=== PATIENT | male | born 1950 | race Caucasian/White ===

== ENCOUNTER 2018-06-28 12:31 | Emergency (ER) | payer OTHER, SELFPAY ==
[2018-06-28 12:52] VITALS: BP 145/83; PULSE 88; RESP 18; TEMP 37.2; O2SAT 94
--- NOTE | 2018-06-28 14:04 | ED.GENADUL_ITS ---
Discharge Plan Disposition Patient Disposition: HOME Condition: Good Discharge Details Chief Complaint: RespSymp Clinical Impression: CAP (community acquired pneumonia) Reason For Visit: coughing x 9 days Primary Care Provider: Bibi,Local ED Provider: Wild Zepeda [facility] and New Rx's Prescriptions: New albuterol sulfate 90 mcg/actuation HFA aerosol inhaler 2 puff IH Q4H PRN (Reason: shortness of breath or wheezing) Qty: 8.5 RF: 0 doxycycline hyclate 100 mg capsule 100 mg PO BID Qty: 14 RF: 0 Continued lovastatin 40 mg Tablet 40 mg PO HS RF: 0 aspirin [Aspir-81] 81 mg Tablet,Delayed Release (Dr/Ec) 81 mg PO DAILY RF: 0 lisinopril 5 mg Tablet 7.5 mg PO RF: 0 coenzyme Q10 [CoQ-10] 100 mg Capsule 1 DAILY RF: 0 Fish Oil 300-500 mg Capsule RF: 0 multivitamin with minerals [Multiple Vitamin-Minerals] Tablet RF: 0 Discharge Instructions Instructions: Community Acquired Pneumonia (ED) Additional Instructions: Continue to rest and stay hydrated. Use the inhaler with spacer every 4-6 hours for cough and wheezing. Take antibiotic as directed. Ibuprofen or acetaminophen as needed for fever or discomfort. Follow-up with your doctor next week if not better, otherwise in 2 weeks once antibiotics completed for recheck. Return to emergency department for progressive shortness of breath, chest pain, mental status changes, vomiting, other concerns. Referrals: Primary Care Provider [Outside] Discharge Data Discharge Date/Time-TO BE ENTERED AT DEPARTURE: 06/28/18 16:30 Medical Decision Making Patient presenting with URI type symptoms for over a week. He has diffuse wheezing throughout. Initially afebrile here. Pulse oximetry is okay. I am going to give him a DuoNeb treatment. Will get a chest x-ray and flu swab. He does not look toxic or ill. Patient does feel better after the DuoNeb. Wheezing is significantly diminished though still slightly present. Flu swab is negative. Chest x-ray is being read by radiology as probable right lower lobe infiltrate. Patient reports that he did feel better after the DuoNeb treatment and felt more open. He has not had any recent antibiotic use. He lives at home in the community and has had no recent hospitalizations. This is community-acquired pneumonia. He looks well and should be able to be managed outpatient. He will be started on doxycycline and is given his first dose here. He did spike a fever here and was given Tylenol. He is given prescriptions for doxycycline as well as albuterol inhaler with spacer. Follow-up with his primary care at the end of the week if not feeling better. Return to the emergency department if any worsening symptomatology. HPI General Mode of arrival: ambulatory . Date/Time Provider Initiated Documentation: 06/28/18 14:03 . Limitations to Documentation: no limitations . Information obtained by: patient . HPI Narrative: Patient presents with over a week's worth of cough, congestion, not feeling well. At night he has significant difficulty sleeping because of cough. He denies having any chest pain or shortness of breath. He denies any significant headache or neurologic changes. He did have the flu shot this year. He has not smoked in years. For the most part he reports being healthy except for some high blood pressure and high cholesterol. Related Data Home Medications Medication Instructions Recorded Confirmed Fish Oil 06/28/18 albuterol sulfate 2 puff IH Q4H PRN #8.5 gm 06/28/18 aspirin [Aspir-81] 81 mg PO DAILY 06/28/18 06/28/18 coenzyme Q10 [CoQ-10] 1 DAILY 06/28/18 doxycycline hyclate 100 mg PO BID #14 cap 06/28/18 lisinopril 7.5 mg PO 06/28/18 lovastatin 40 mg PO HS 06/28/18 06/28/18 multivitamin with minerals 06/28/18 [Multiple Vitamin-Minerals] Previous Rx's Medication Instructions Recorded albuterol sulfate 2 puff IH Q4H PRN #8.5 gm 06/28/18 doxycycline hyclate 100 mg PO BID #14 cap 06/28/18 Allergies Allergy/AdvReac Type Severity Reaction Status Date / Time bee venom protein (honey bee) Allergy Unverified 06/28/18 12:57 clarithromycin [From Biaxin] Allergy Unverified 06/28/18 12:57 General Stated Complaint: RespSymp JOHN: 4 Review of Systems Constitutional Denies chills, Reports fever(s) (subjective), Denies headache(s), Denies lethargy and Denies weakness Eyes Denies eye discharge and Denies eye pain ENT Denies otalgia, Denies facial pain, Denies headache(s), Reports nasal congestion, Denies neck pain, Denies sinus pain and Denies sore throat Cardiovascular Denies chest pain, Denies diaphoresis, Denies syncope and Denies dyspnea Respiratory Reports cough and Denies dyspnea Gastrointestinal Denies abdominal pain, Denies nausea and Denies vomiting Musculoskeletal Denies back pain, Denies neck pain and Denies tingling Integumentary/Breasts Denies rash Neurologic Denies confusion, Denies syncope, Denies headache(s), Denies focal weakness, Denies tingling, Denies paresthesias and Denies weakness Psychiatric Denies confusion PFSH Social History Smoking/Tobacco Use Status: Former Tobacco Use Alcohol Intake: current Alcohol Intake frequency: a few times a week Substance use type: does not use Do you feel safe at home: Yes Do you feel safe in your relationship?: Yes Exam Const General: cooperative, comfortable and no acute distress Orientation: alert and oriented x3 HENMT Head: normocephalic and atraumatic Ears: TM's normal bilaterally Mouth: oropharynx normal and moist mucous membranes Throat: posterior oropharynx normal Neck Neck: trachea midline and supple Resp Effort & Inspection: normal respiratory effort Auscultation: lung sounds not diminished, rhonchi (few) and wheezes expiratory wheezes Cardio Rate: regular rate Rhythm: regular rhythm Heart Sounds: S1 normal and S2 normal GI Palpation: soft, not firm and nontender Skin Rashes: no rashes Neuro General: alert, oriented x3, no focal motor deficits and CN's II-XI intact bilaterally Cognition: normal cognition Speech: speech normal Gait: normal gait Course Vital Signs Temperature 99.0 F 06/28/18 12:52 Pulse 88 06/28/18 12:52 Respiratory Rate 18 06/28/18 12:52 Blood Pressure 145/83 H 06/28/18 12:52 Pulse Oximetry 94 L 06/28/18 12:52 Temperature 99.0 F 06/28/18 12:52 Temperature Source Temporal Artery Scan 06/28/18 12:52 Pulse 88 06/28/18 12:52 Respiratory Rate 18 06/28/18 12:52 Respiratory Effort 06/28/18 13:03 Blood Pressure 145/83 H 06/28/18 12:52 Pulse Oximetry 94 L 06/28/18 12:52 Oxygen Delivery Method Room Air 06/28/18 12:52 Oxygen Flow Rate 0 06/28/18 12:52
--- NOTE | 2018-06-28 14:04 | DI.RAD_ITS ---
SYMPTOMS/DIAGNOSIS: COUGH CHEST: Frontal and lateral views. No priors. The heart size and pulmonary vasculature are within normal limits. There is an infiltrate seen in the right lower lobe and right perihilar region suspicious for pneumonia. The left lung appears clear. No effusions or pneumothoraces are identified. Degenerative changes are seen in the spine. Post surgical changes are seen in the neck and the mediastinum. There is mild elevation of the right hemidiaphragm. IMPRESSION: Right lower lobe infiltrate suspicious for pneumonia. The findings were discussed with Dr. Zepeda of the emergency department on the date of the examination.
[2018-06-28] MEDS: Albuterol/Ipratropium 3 ML UPD VIAL UPD (14:15)
[2018-06-28] MEDS: Doxycycline Hyclate 100 MG CAP PO (16:15)
[2018-06-28 16:18] VITALS: BP 135/81; PULSE 85; TEMP 38.6; O2SAT 97
[2018-06-28 16:23] VITALS: TEMP 38.6
[2018-06-28] MEDS: Acetaminophen 325 MG TAB 650 MG PO (16:23)
[2018-06-28 16:26] VITALS: TEMP 38.6
== END 2018-06-28 16:30 | disposition home or self-care (01) ==
PROVIDERS: Emergency Provider Emergency Medicine
DX: J18.9 Pneumonia, unspecified organism (principal); Z87.891 Personal history of nicotine dependence
CPT/HCPCS: 87449; 94640; 99283; 71046; J7620

== ENCOUNTER 2018-12-19 16:42 | Emergency (ER) | payer OTHER, SELFPAY ==
[2018-12-19] VITALS (29 sets, daily range): BP systolic 64–114; BP diastolic 32–73; PULSE 53–90; RESP 9–30; TEMP 36.6–36.9; O2SAT 86–97
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
--- NOTE | 2018-12-19 16:49 | DI.RAD_ITS ---
SYMPTOM/DIAGNOSIS: OVER THE PATIENT'S INCISION, 3 AREAS LE SUPINE AP CHEST: 12/19 There are multiple right rib fractures probably ribs 5 through 9, and there are fractures of left rib 5,6 and 8 with possibly additional left rib fractures seen. There is a left apical pneumothorax. Increased radiodensity over the left hemithorax is likely to represent a pleural effusion. Pulmonary contusion may be present as well. There is a small quantity of gas in the soft tissues lateral to the left ribs. CONCLUSION: Chest injury with multiple bilateral rib fractures, left apical pneumothorax, left hemothorax and possible left pulmonary contusion. Additional evaluation with chest CT recommended.
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
[2018-12-19] MEDS: Lactated Ringers 1,000 ML 1000 ML IV ×2 (16:59→17:57)
[2018-12-19] MEDS: MORPHine 10 MG/ML VIAL 8 MG IVP (17:00)
[2018-12-19] MEDS: cefTRIAXone 1 GM/50 ML BAG IVPB (17:00)
[2018-12-19 17:10] LABS: Abs Immature Grans 0.14 k/cumm (0.0-0.09); Absolute Basophil Count 0.07 k/cumm (0.0-0.2); Absolute Eosinophil Count 0.27 k/cumm (0.0-0.7); Absolute Lymphocyte Count 3.62 k/cumm (1.2-3.4); Absolute Monocyte Count 1.11 k/cumm (0.11-0.7); Absolute Neutrophil Count 17.01 k/cumm (1.2-6.7); Basophils % 0.3; Eosinophils % 1.2; HCT 46.9 % (40.0-50.0); HGB 15.8 g/dL (13.5-17.5); Immature Grans % 0.6; Lymphocytes % 16.3; Mean Corp. HGB Concentration 33.7 g/dL (32.0-36.0); Mean Corpuscular Hemoglobin 31.2 pg (27.0-33.0); Mean Corpuscular Volume 92.5 fL (80-95); Mean Platelet Volume 8.7 fL (8.0-11.0); Neutrophils % 76.6; Platelet Count 314 x1000/uL (130-400); RBC 5.07 m/cumm (4.50-6.00); RBC Distribution Width 12.3 % (11.8-14.1)
[2018-12-19 17:18] LABS: ALT 40 U/L (16-63); AST 40 U/L (15-37); Alkaline Phosphatase 109 U/L (46-116); Anion Gap 8.8 mmol/L (3-11); BUN 20 mg/dL (7-18); Bilirubin, Total 0.8 mg/dL (0.2-1.0); CO2 29.2 mmol/L (21.0-32.0); CREATININE 1.51 mg/dL (0.70-1.30); Calcium 8.9 mg/dL (8.5-10.1); Chloride 102 mmol/L (98-107); Estimated GFR 46.32 (mL/min/1.73m2); Glucose 149 mg/dL (70-100); Magnesium 1.7 mg/dL (1.8-2.4); Potassium 3.9 mmol/L (3.5-5.1); Sodium 140 mmol/L (136-145)
[2018-12-19] MEDS: MORPHine 10 MG/ML VIAL (17:57)
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
--- NOTE | 2018-12-19 18:37 | NUR.NOTE ---
1835 o negative RBC began [facility] [facility]
== END 2018-12-19 19:05 | disposition short-term general hospital (02) ==
PROVIDERS: Emergency Provider Emergency Medicine
DX: S22.42XA Multiple fractures of ribs, left side, initial encounter for closed fracture (principal); S42.362A Displaced segmental fracture of shaft of humerus, left arm, initial encounter for closed fracture; S52.92XB Unspecified fracture of left forearm, initial encounter for open fracture type I or II; R20.0 Anesthesia of skin; S27.329A Contusion of lung, unspecified, initial encounter; I95.9 Hypotension, unspecified; W30.1XXA Contact with power take-off devices (PTO), initial encounter; Y92.73 Farm field as the place of occurrence of the external cause
CPT/HCPCS: 36415; 36430; 80053; 86850; 86900; 86901; 86920; 90471; 93005; 96361; 96365; 96366; 96375; 96376; 99291; 71045; 73060; 73080; 73090; 73130; 83735; 85025; 93010; J0696; J2270; P9016

== ENCOUNTER 2023-05-24 14:12 | Emergency (ER) | payer MEDICARE, SELFPAY ==
[2023-05-24 14:16] VITALS: BP 167/108; PULSE 77; RESP 20; TEMP 36.7; O2SAT 96
--- NOTE | 2023-05-24 14:20 | W.ED.GENAD ---
HPI General Date/Time Provider Initiated Documentation: 05/24/23 14:19. HPI Narrative: MDM Primary survey intact. Reassuring shock index. On secondary survey patient has an approximately 2 and half centimeters laceration at the base of his left thumb primarily ulnar aspect that will require primary closure following copious irrigation. Tetanus updated within the past 5 years so no indication for repeat tetanus immunization. Intact motor function so I am not suspicious for any underlying ligamentous damage. Hand warm and well-perfused so I am not concerned for any vascular injury. Please see separate procedure note concerning primary closure accomplished in the ED which patient tolerated well. Patient and I discussed return indications including any foul-smelling drainage any fevers or any streaking signs of infection. He understood his return indications and was discharged with empiric trial of expectant outpatient management. Chronic conditions affecting the care of the patient: Reactive airway disease History obtained from an outside historian: N/A External record review: N/A Medications: Acetaminophen ibuprofen local lidocaine Social determinants of health affecting disposition: N/A Management discussed with: N/A Treatment/interventions considered: N/A Response to therapies provided: N/A HPI This is a right hand dominant 72-year-old male with history of reactive airway disease arrived to the emergency department via private vehicle in the setting of a laceration he sustained approximately 35 minutes ago to his left thumb at the base after opening a can of beans. He reports that his tetanus was updated in 2019 he broke his left arm in an agricultural accident. He reports that he was in his usual state of health earlier today and denies any preceding fevers chills chest pain shortness of breath. 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 He currently splits his time between [facility] and [facility]. Exam General: Well-appearing in no acute distress speaking in complete sentences. Head: Normocephalic, atraumatic. Eye: Extraocular eye movements intact. No conjunctival injection. No scleral icterus. Ear, nose, mouth, throat: Grossly normal inspection. Normal voice, handling secretions normally. Neck: Trachea midline. Cardiovascular: Well-perfused distal extremities. Respiratory: Nonlabored respiration. Gastrointestinal: Nondistended abdomen. Musculoskeletal: On the ulnar aspect at the base of the left thumb there is a linear approximately 2.5 cm laceration with minor oozing. Thumb is warm well-perfused with less than 2-second capillary refill. 2 seconds left radial pulse. Patient has full range of motion in his left thumb and is able to flex, extend and radially and ulnarly deviate. Skin: Normal for age and race, grossly normal temperature and turgor. No acute rash. Neurologic: Alert and appropriate, no apparent acute deficits. Psychiatric: Mood and manner are appropriate. Grooming and personal hygiene are appropriate. Related Data Home Medications Medication Instructions Recorded Confirmed albuterol sulfate 90 mcg/actuation 2 puff inhalation Q4H PRN 06/28/18 12/19/18 aerosol inhaler shortness of breath or wheezing #8.5 grams aspirin 81 mg tablet,delayed 81 mg PO DAILY 06/28/18 12/19/18 release (Aspir-) coenzyme Q10 100 mg capsule 1 mg DAILY 06/28/18 12/19/18 (CoQ-10) lisinopril 5 mg tablet 7.5 mg PO DAILY AM 06/28/18 12/19/18 multivitamin with minerals 1 tab PO DAILY 06/28/18 12/19/18 (Multiple Vitamin-Minerals tablet) omega-3 fatty acids-fish oil 300 1 cap PO DAILY 06/28/18 12/19/18 mg-500 mg capsule (Fish Oil) atorvastatin 20 mg tablet 20 mg PO DAILY 12/19/18 cholecalciferol (vitamin D3) 25 1,000 unit PO DAILY 12/19/18 12/19/18 mcg (1,000 unit) chewable tablet (Vitamin D3) esomeprazole magnesium 40 mg 40 mg PO DAILY 12/19/18 12/19/18 capsule,delayed release (Nexium) fluticasone propionate 50 2 spray intranasal 12/19/18 mcg/actuation nasal spray,suspension (Flonase Allergy Relief) loratadine 10 mg tablet 10 mg PO DAILY 12/19/18 12/19/18 psyllium 2 - 4 pwd PO DAILY 12/19/18 12/19/18 tadalafil 10 mg tablet 10 mg PO BID PRN 12/19/18 12/19/18 Previous Rx's Medication Instructions Recorded albuterol sulfate 90 mcg/actuation 2 puff inhalation Q4H PRN 06/28/18 aerosol inhaler shortness of breath or wheezing #8.5 grams Allergies Allergy/AdvReac Type Severity Reaction Status Date / Time bee venom protein (honey bee) Allergy Unverified 12/19/18 19:15 clarithromycin [From Biaxin] Allergy Unverified 12/19/18 19:15 General Stated Complaint: Laceration JOHN: 4 Course Vital Signs Vital signs: Vital Signs Temperature 36.7 C 05/24/23 14:16 Pulse 77 05/24/23 14:16 Respiratory Rate 20 05/24/23 14:16 Blood Pressure 167/108 H 05/24/23 14:16 Pulse Oximetry 96 05/24/23 14:16 Temperature 36.7 C 05/24/23 14:16 Pulse 77 05/24/23 14:16 Respiratory Rate 20 05/24/23 14:16 Respiratory Effort Normal 05/24/23 14:19 Blood Pressure 167/108 H 05/24/23 14:16 Pulse Oximetry 96 05/24/23 14:16 Procedures Laceration Laceration 1: Site: hand Side (If applicable): left Size (cm): 2.5 Description: linear Depth: simple, single layer Local Anesthetic: Lidocaine 2% Amount of anesthesia used (mL): 6 Pre-repair: wound explored, irrigated extensively and deep structures intact Skin layer closed with: nylon Size (cm): 5-0 (Prolene) Number of sutures: 6 Technique: simple, interrupted Medical Decision Making Quality:SDOH Health Related Social Needs: No Data to Display PFSH All Active Problems (Updated 05/24/23 @ 14:47 by Al Santiago MD) Laceration of left hand (Acute) Social History Smoking/Tobacco Use Status: Former Tobacco Use Smoking risk assessment performed?: Yes Alcohol Intake: current Alcohol Intake frequency: a few times a week Substance use type: does not use Do you feel safe at home: Yes Do you feel safe in your relationship?: Yes Discharge Plan Disposition Patient Disposition: Home Discharge Details Clinical Impression: Laceration of left hand Primary Care Provider: Bibi,Local ED Provider: Al Santiago Home Meds and New Rx's Prescriptions: Continued aspirin [Aspir-81] 81 mg Tablet,Delayed Release (Dr/Ec) 81 mg PO DAILY lisinopril 5 mg Tablet 7.5 mg PO DAILY AM coenzyme Q10 [CoQ-10] 100 mg Capsule 1 mg DAILY Fish Oil 300-500 mg Capsule 1 cap PO DAILY multivitamin with minerals [Multiple Vitamin-Minerals] Tablet 1 tab PO DAILY albuterol sulfate 90 mcg/actuation HFA aerosol inhaler 2 puff IH Q4H PRN (Reason: shortness of breath or wheezing) Qty: 8.5 0RF Rx Instructions: please dispense with spacer atorvastatin 20 mg Tablet 20 mg PO DAILY psyllium Powder 2 - 4 pwd PO DAILY esomeprazole magnesium [Nexium] 40 mg Capsule,Delayed Release(Dr/Ec) 40 mg PO DAILY fluticasone propionate [Flonase Allergy Relief] 50 mcg/actuation [place],Suspension 2 spray INTRANASAL loratadine 10 mg Tablet 10 mg PO DAILY tadalafil 10 mg Tablet 10 mg PO BID PRN cholecalciferol (vitamin D3) [Vitamin D3] 1,000 unit Tablet,Chewable 1,000 unit PO DAILY Discharge Instructions Instructions: Laceration (ED) Additional Instructions: You were seen in the emergency department for your left hand laceration laceration which was closed with 6 sutures that will need to be removed in 7 to 10 days. As we discussed, please keep your wound clean, dry and covered. Please do not soak in a tub, swim or engage in any activities which could introduce dirt into your wound. You may return to the emergency department, go to urgent care or go to your primary care provider in 7 to 10 days to have your stitches removed. As we discussed if you develop any foul-smelling drainage fevers streaking signs of infection or have any other concerns please return to the emergency department. For your pain please take medications as follows: 1. Take acetaminophen (Tylenol), 1,000 mg (two 500 mg tabs) every 6 hours [2. Take ibuprofen (Advil), 400 mg every 6 hours.] Discharge Data Discharge Date/Time-TO BE ENTERED AT DEPARTURE: 05/24/23 14:53
[2023-05-24] MEDS: Acetaminophen 500 MG TAB 1000 MG PO (14:26)
[2023-05-24] MEDS: Ibuprofen 600 MG TAB PO (14:27)
[2023-05-24] MEDS: Lidocaine 2% Multi-Dose 20 ML VIAL IJ (14:27)
== END 2023-05-24 14:53 | disposition home or self-care (01) ==
PROVIDERS: Emergency Provider Emergency Medicine
DX: S61.012A Laceration without foreign body of left thumb without damage to nail, initial encounter (principal); Z79.82 Long term (current) use of aspirin; Z87.891 Personal history of nicotine dependence; W26.8XXA Contact with other sharp object(s), not elsewhere classified, initial encounter; Y93.G3 Activity, cooking and baking
CPT/HCPCS: 12001; 99283; J2003